=== PATIENT | female | born 1955 | race African-American/Black ===

== ENCOUNTER 2016-11-07 18:24 | Emergency (ER) | payer SELFPAY ==
[2016-11-07] MEDS ORDERED: NORMAL SALINE 1000 ML 1,000 ML IV ONE (18:41)
[2016-11-07 18:57] LABS: ABSOLUTE BASOPHILS # (AUTO) 0.1 10^3/uL (0.0-0.2); ABSOLUTE EOSINOPHILS # (AUTO) 0.3 10^3/uL (0.0-0.6); ABSOLUTE LYMPHOCYTES (AUTO) 2.7 10^3/uL (0.5-4.7); ABSOLUTE MONOCYTES (AUTO) 0.6 10^3/uL (0.1-1.4); ABSOLUTE NEUT (AUTO) 3.1 10^3/uL (1.7-8.2); BASOPHILS % (AUTO) 0.8 % (0-2); HEMATOCRIT 28.9 % (36.0-47.0); HEMOGLOBIN 9.5 g/dL (12.0-15.5); HGB HCT DIFFERENCE -0.4; LYMPHOCYTES % (AUTO) 39.7 % (13-45); MEAN CORPUSCULAR HEMOGLOBIN 24.9 pg (27.0-33.4); MEAN CORPUSCULAR HGB CONC 32.9 g/dL (32.0-36.0); MEAN CORPUSCULAR VOLUME 76 fl (80-97); MONOCYTES % (AUTO) 8.9 % (3-13); RED BLOOD COUNT 3.82 10^6/uL (3.72-5.28); RED CELL DISTRIBUTION WIDTH 15.5 % (11.5-14.0); SEGMENTED NEUTROPHILS % (AUTO) 45.6 % (42-78); WHITE BLOOD COUNT 6.8 10^3/uL (4.0-10.5)
--- NOTE | 2016-11-07 19:14 | ER Document Report ---
ED General - General Chief Complaint: Possible Overdose Stated Complaint: POSSIBLE OVERDOSE Cannot obtain history due to: Intoxicated, Uncooperative Notes: Patient is a 61-year-old female who presents after overdosing on cocaine and Xanax. States she took these medicines in an attempt to kill herself. States she's done something similar in the past. No additional history can be obtained at time of arrival due to patient's somnolence. TRAVEL OUTSIDE OF THE [place] IN LAST 30 DAYS: No Past Medical History - General Information source: Patient, Emergency Med Personnel - Social History Smoking Status: Current Every Day Smoker Frequency of alcohol use: None Drug Abuse: Cocaine, Prescription drugs Family History: Reviewed & Not Pertinent Patient has suicidal ideation: No Patient has homicidal ideation: No Renal/ Medical History: Denies: Hx Peritoneal Dialysis Review of Systems - Review of Systems -: Yes ROS unobtainable due to patient's medical condition Physical Exam - Vital signs Vitals: Temp Pulse Resp BP Pulse Ox 98.4 F 74 12 121/54 L 97 11/07/16 18:29 11/07/16 18:29 11/07/16 18:29 11/07/16 18:29 11/07/16 18:29 Interpretation: Normal Notes: PHYSICAL EXAMINATION: GENERAL: Somnolent but in no distress HEAD: Atraumatic, normocephalic. EYES: Pupils equal round and reactive to light, extraocular movements intact, sclera anicteric, conjunctiva are normal. ENT: nares patent, oropharynx clear without exudates. Moderately dry mucous membranes. NECK: Normal range of motion, supple without lymphadenopathy LUNGS: Breath sounds clear to auscultation bilaterally and equal. No wheezes rales or rhonchi. HEART: Regular rate and rhythm without murmurs ABDOMEN: Soft, nontender, normoactive bowel sounds. No guarding, no rebound. No masses appreciated. EXTREMITIES: Normal range of motion, no pitting or edema. No cyanosis. NEUROLOGICAL: No focal neurological deficits. Moves all extremities spontaneously and on command. PSYCH: Somnolent but wakes to sternal rub SKIN: Warm, Dry, normal turgor, no rashes or lesions noted. Course - Re-evaluation Re-evalutation: 11/07/16 19:06 Patient presents after an overdose of xanax and cocaine. She is somnolent but does wake to noxious stimuli. She is protecting her airway. Vitals otherwise wnl. She has been placed on a monitor. EKG unremarkable. Screening labs have been sent and she will be placed on IVC. She will be reassessed frequently for decompensation. 2000-patient continues to rest calmly. No change in vitals. Breath sounds remain clear bilaterally. She continues to wake to sternal rub 2200-patient now wakes to voice. Vitals remained within normal limits. Laboratory show baseline anemia but otherwise unremarkable. 0100-patient resting calmly, wakes easily to voice. Medically cleared at this time. - Vital Signs Vital signs: Temp Pulse Resp BP Pulse Ox 98.4 F 74 13 108/68 99 11/07/16 18:29 11/07/16 18:29 11/07/16 21:01 11/07/16 21:00 11/07/16 21:01 - Laboratory Result Diagrams: 11/07/16 18:50 11/07/16 18:50 Laboratory results interpreted by me: 11/07/16 11/07/16 18:50 18:50 Hgb 9.5 L Hct 28.9 L MCV 76 L MCH 24.9 L RDW 15.5 H Salicylates < 1.0 L Acetaminophen < 10 L - EKG Interpretation by Me Additional EKG results interpreted by me: 11/07/16 19:14 Normal sinus rhythm. No ST elevations or depressions. QTC is 452. QRS duration is 90 ms Discharge - Discharge Clinical Impression: Suicide attempt Benzodiazepine overdose Qualifiers: Encounter type: initial encounter Injury intent: intentional self-harm Qualified Code(s): T42.4X2A - Poisoning by benzodiazepines, intentional self- harm, initial encounter
[2016-11-07 19:17] LABS: ALANINE AMINOTRANSFERASE 22 U/L (9-52); ALBUMIN 3.8 g/dL (3.5-5.0); ALKALINE PHOSPHATASE 91 U/L (38-126); ANION GAP 7 (5-19); ASPARTATE AMINO TRANSFERASE 21 U/L (14-36); BILIRUBIN,DIRECT 0.3 mg/dL (0.0-0.4); BILIRUBIN,TOTAL 0.3 mg/dL (0.2-1.3); BLOOD UREA NITROGEN 18 mg/dL (7-20); CALCIUM 9.2 mg/dL (8.4-10.2); CARBON DIOXIDE 26 mmol/L (22-30); CHLORIDE 107 mmol/L (98-107); CREATININE RESULT 0.77 mg/dL (0.52-1.25); GLUCOSE 82 mg/dL (75-110); POTASSIUM 4.7 mmol/L (3.6-5.0); SODIUM 139.5 mmol/L (137-145); TOTAL PROTEIN 6.6 g/dL (6.3-8.2)
[2016-11-07 19:20] LABS: ALCOHOL < 10 mg/dL (NONE DETECTED)
--- NOTE | 2016-11-07 20:47 | EKG REPORT ---
SEVERITY:- ABNORMAL ECG - SINUS RHYTHM PROBABLE LEFT VENTRICULAR HYPERTROPHY : Confirmed by: Wanda Zepeda 07-Nov-2016 20:46:43
[2016-11-08 00:26] LABS: APPEARANCE,URINE CLEAR; BILIRUBIN,URINE NEGATIVE (NEGATIVE); GLUCOSE, URINE NEGATIVE (NEGATIVE); KETONES,URINE NEGATIVE (NEGATIVE); LEUKOCYTE ESTERASE,URINE NEGATIVE (NEGATIVE); NITRITE,URINE NEGATIVE (NEGATIVE); PROTEIN,URINE NEGATIVE (NEGATIVE); URINE SPECIFIC GRAVITY 1.005; UROBILINOGEN,URINE NEGATIVE mg/dL (<2.0)
[2016-11-08 00:45] LABS: URINE BARBITURATES SCREEN NEGATIVE; URINE METHADONE SCREEN NEGATIVE; URINE OPIATES LOW NEGATIVE; URINE PHENCYCLIDINE SCREEN NEGATIVE
[2016-11-08] MEDS ORDERED: ACETAMINOPHEN 325 MG TABLET PO ONE (09:24)
[2016-11-08] MEDS ORDERED: PROMETHAZINE HCL 25 MG TABLET PO ONE (11:26)
[2016-11-08] MEDS ORDERED: TRAMADOL HCL 50 MG TABLET PO ONE (11:26)
--- NOTE | 2016-11-08 12:39 | PSYCHOLOGICAL NOTE ---
Psych Note - Psych Note Psych Note: Patient is a 61-year-old female who presented overnight via a POV accompanied by a resources coordinator after she allegedly attempted suicide via overdose of prescription Xanax and cocaine. Patient reportedly presented from the [facility], which is a known sober living facility throughout [facility]. Additionally noted in nursing reports as the following, "patient noted to be slow to respond with slurred speech. patient reports she took xanax and cocaine intending to harm self. upon undressing patient, noted to have bottle of xanax between breasts. xanax noted to have been filled on 11/02/16 with a quantity of 90 , noted to have 16 pills left in container. patient also noted to have purse with several medications in it. Dr. Goldsmith at bedside." Patient was petitioned for involuntary commitment and held overnight for further evaluation and disposition. Patient has no known history in this department per review of medical records. Patient this morning states she relapsed after almost 60 days. She is tearful and repeatedly states she is too old for this. Patient states her drugs of choice were crack cocaine and alcohol and that she actually relapsed this past Tuesday and throughout Tuesday. Patient acknowledges that she took extra Xanax tabs; however states she is not necessarily attempting suicide but that she just did not care what happened to her. Patient states now she wants to return to the [facility] and is fearful that she will not be allowed to do so. Discussed with patient's her lengthy drug abuse history which she states began around 30 years ago. Patient reports she was very proud of her 60 days. Discussed substance abuse in the process of recovery and patient was able to verbalize that she understands relapse can be part of recovery. Prompted patient to forgive herself and make a decision as to whether or not she wants to proceed with recovery or continue with the life of substance abuse. Patient adamant that she wants to continue with recovery in attempt to achieve sobriety again. Patient denies any history of suicide attempts but does acknowledge she has considered suicide intermittently throughout her life when "strung out." Inez Aranda, information resources director. Purse and belongings in purse is all that is present with patient. Number for [facility] is [phone] and number to reach information resources director is [phone]. Coordinator states the patient was informed yesterday that she must be out of [facility] for 12 days until she may re-interview for another bed. Coordinator states the patient will have to make other arrangements, and further reports she is from [place]. Coordinator states yesterday attempts were made at securing a detox bed; however, was denied because she is not from here. Coordinator states once she was denied was when the patient began making SI type statements. Coordinator reports the other option is for patient to call family/friends from her home area or present to the homeless fdc. She reports the patient will need to call the house at the above number and schedule a time to diamond picker her belongings. Patient is alert and oriented. Mood is at bedtime with tearful affect. Patient denies suicidal/homicidal ideations, intent, plan, means. Patient denies A/VH; delusions not noted. Thought processes were organized and goal oriented towards returning to [facility]. Conversational speech was soft for tone and volume. Intellectual abilities were estimated within average range. Attention and focus were fair. Insight, judgment, impulse control were poor. Unspecified depressive disorder Alcohol use disorder per history Cocaine use disorder per history Patient is psychiatrically cleared and recommended for recent IVC and discharge to follow-up with an outpatient provider of her choice. Patient is encouraged to pursue services via [facility], and outpatient provider specializing in substance abuse and mental health services.
--- NOTE | 2016-11-08 12:53 | ER Document Report ---
ED Psych Disorder / Suicide - General Chief Complaint: Possible Overdose Stated Complaint: POSSIBLE OVERDOSE; Depression; Substance Abuse Information source: Patient, Outside Facility Records - [facility] TRAVEL OUTSIDE OF THE [place] IN LAST 30 DAYS: No - HPI Patient complains to provider of: Overdose - patient states she was not trying to , but at the same time did not care what happened to her Onset: Just prior to arrival Onset was: Sudden Suicide Risk Factors: Substance abuse Situational problems related to: Other - relapsed Tuesday after almost 60 days Suicide Attempt Method: Overdose - Xanax Overdose of: Benzodiazepine Normal mood: No Associated symptoms: Anxious, Depressed, Labile, Tearful Similar symptoms previously: No Recently seen / treated by doctor: No Notes: Patient is a 61-year-old female who presented overnight via a POV accompanied by a resources coordinator after she allegedly attempted suicide via overdose of prescription Xanax and cocaine. Patient reportedly presented from the [facility], which is a known sober living facility throughout [facility]. Additionally noted in nursing reports as the following, "patient noted to be slow to respond with slurred speech. patient reports she took xanax and cocaine intending to harm self. upon undressing patient, noted to have bottle of xanax between breasts. xanax noted to have been filled on 11/02/16 with a quantity of 90 , noted to have 16 pills left in container. patient also noted to have purse with several medications in it. Dr. Goldsmith at bedside." Patient was petitioned for involuntary commitment and held overnight for further evaluation and disposition. Patient has no known history in this department per review of medical records. Patient this morning states she relapsed after almost 60 days. She is tearful and repeatedly states she is too old for this. Patient states her drugs of choice were crack cocaine and alcohol and that she actually relapsed this past Tuesday and throughout Tuesday. Patient acknowledges that she took extra Xanax tabs; however states she is not necessarily attempting suicide but that she just did not care what happened to her. Patient states now she wants to return to the [facility] and is fearful that she will not be allowed to do so. Discussed with patient's her lengthy drug abuse history which she states began around 30 years ago. Patient reports she was very proud of her 60 days. Discussed substance abuse in the process of recovery and patient was able to verbalize that she understands relapse can be part of recovery. Prompted patient to forgive herself and make a decision as to whether or not she wants to proceed with recovery or continue with the life of substance abuse. Patient adamant that she wants to continue with recovery in attempt to achieve sobriety again. Patient denies any history of suicide attempts but does acknowledge she has considered suicide intermittently throughout her life when "strung out." Inez Aranda, forest resources professor. Purse and belongings in [facility] is all that is present with patient. Number for house is [phone] and number to reach forest resources professor is [phone]. Coordinator states the patient was informed yesterday that she must be out of [facility] for 12 days until she may re-interview for another bed. Coordinator states the patient will have to make other arrangements, and further reports she is from [place]. Coordinator states yesterday attempts were made at securing a detox bed; however, was denied because she is not from here. Coordinator states once she was denied was when the patient began making SI type statements. Coordinator reports the other option is for patient to call family/friends from her home area or present to the homeless longterm. She reports the patient will need to call the house at the above number and schedule a time to greens picker her belongings. Patient is alert and oriented. Mood is at bedtime with tearful affect. Patient denies suicidal/homicidal ideations, intent, plan, means. Patient denies A/VH; delusions not noted. Thought processes were organized and goal oriented towards returning to [facility]. Conversational speech was soft for tone and volume. Intellectual abilities were estimated within average range. Attention and focus were fair. Insight, judgment, impulse control were poor. Unspecified depressive disorder Alcohol use disorder per history Cocaine use disorder per history Patient is psychiatrically cleared and recommended for recent IVC and discharge to follow-up with an outpatient provider of her choice. Patient is encouraged to pursue services via [facility], and outpatient provider specializing in substance abuse and mental health services. - Related Data Allergies/Adverse Reactions: No Known Allergies Allergy (Verified 11/08/16 07:52) Home Medications: Current Home Medications Alprazolam 1 mg PO TID 11/08/16 [History] Amitriptyline HCl [Elavil 50 Mg Tablet] 50 mg PO DAILY 11/08/16 [History] Atorvastatin Calcium 10 mg PO DAILY 11/08/16 [History] Carbamazepine 200 mg PO BID 11/08/16 [History] Levothyroxine Sodium [Synthroid 50 Mcg Tablet] 50 mcg PO DAILY 11/08/16 [History ] Lisinopril 40 mg PO DAILY 11/08/16 [History] Metformin HCl [Glucophage] 1,000 mg PO BID 11/08/16 [History] Naproxen Sodium 550 mg PO BID 11/08/16 [History] Pantoprazole Sodium 40 mg PO DAILY 11/08/16 [History] Pregabalin [Lyrica 100 Mg Capsule] 300 mg PO BID 11/08/16 [History] Propranolol HCl [Inderal 10 mg Tablet] 10 mg PO QHS 11/08/16 [History] Ropinirole HCl 0.5 mg PO QHS 11/08/16 [History] Sertraline HCl [Zoloft] 100 mg PO BID 11/08/16 [History] Tiotropium [place] [Spiriva Respimat] 2.5 mcg IH BID 11/08/16 [History] Trazodone HCl 100 mg PO QHS 11/08/16 [History] Past Medical History - General Information source: Patient, Emergency Med Personnel - Social History Smoking Status: Current Every Day Smoker Frequency of alcohol use: None Drug Abuse: Cocaine, Prescription drugs Family History: Reviewed & Not Pertinent Patient has suicidal ideation: No Patient has homicidal ideation: No Renal/ Medical History: Denies: Hx Peritoneal Dialysis Physical Exam - Vital signs Vitals: Temp Pulse Resp BP Pulse Ox 98.4 F 74 12 121/54 L 97 11/07/16 18:29 11/07/16 18:29 11/07/16 18:29 11/07/16 18:29 11/07/16 18:29 Course - Vital Signs Vital signs: Temp Pulse Resp BP Pulse Ox 97.9 F 74 18 131/90 H 96 11/08/16 05:01 11/07/16 18:29 11/08/16 11:42 11/08/16 11:42 11/08/16 11:44 - Laboratory Result Diagrams: 11/07/16 18:50 11/07/16 18:50 Laboratory results interpreted by me: 11/07/16 11/07/16 18:50 18:50 Hgb 9.5 L Hct 28.9 L MCV 76 L MCH 24.9 L RDW 15.5 H Salicylates < 1.0 L Acetaminophen < 10 L Discharge - Discharge Clinical Impression: Suicide attempt, Polysubstance (excluding opioids) dependence, Depression Benzodiazepine overdose Qualifiers: Encounter type: initial encounter Injury intent: intentional self-harm Qualified Code(s): T42.4X2A - Poisoning by benzodiazepines, intentional self- harm, initial encounter Condition: Good Disposition: HOME, SELF-CARE Instructions: Instructions for Home Care Following a Drug Overdose ([facility]), Depression ([facility]) Additional Instructions: Please follow up with [facility], outpatient provider who specializes in Substance Abuse and Mental Health Services. Please contact your sponsor for support. [facility], you may interview for placement again in 12 days. You have been provided a list of community resources , to include mobile crisis as well as the homeless longterm.
--- NOTE | 2016-11-08 13:06 | ER Document Report ---
Doctor's Note Notes: 11/08/16 13:05 Rounds: Chart reviewed and patient interviewed. Patient is awake and alert and talking normally. Does not express suicidal thoughts at this time. All vital signs have been essentially normal. Lab work shows a chronic appearing anemia with indices suggesting iron deficiency. Her hemoglobin is 9.5. Patient's drug screen is positive for benzos and cocaine. Patient appears to be medically stable for transfer or discharge. Mental health has assessed the patient feels she can be discharged for outpatient follow-up at [facility]. Marielle Montgomery M.D.
[2016-11-08 15:33] VITALS: BP 138/84
== END 2016-11-08 16:30 | disposition home or self-care (01) ==
LOC: ER 18:24
DX: T42.4X2A Poisoning by benzodiazepines, intentional self-harm, initial encounter (principal); T40.5X2A Poisoning by cocaine, intentional self-harm, initial encounter; R40.0 Somnolence; Y92.199 Unspecified place in other specified residential institution as the place of occurrence of the external cause; F19.20 Other psychoactive substance dependence, uncomplicated; F32.9 Major depressive disorder, single episode, unspecified; D64.9 Anemia, unspecified; F17.200 Nicotine dependence, unspecified, uncomplicated
CPT/HCPCS: 36415; 80053; 80307; 81001; 85025; 93005; 93010; 99285